=== PATIENT | female | born 1950 | race Caucasian/White ===

== ENCOUNTER → 2018-08-23 13:06 | Outpatient (CLI) | payer SELFPAY ==
--- NOTE | 2018-08-23 13:20 | XR_ITS ---
XR knee RT 4V HISTORY: ITS.REASON: right knee pain ORDERING PHYSICIAN: Pepper Lombardo MD PATIENT AGE: 68 years COMPARISON: None FINDINGS: There is moderate to severe osteoarthritic changes medial compartment and patellofemoral joint. No fracture or dislocation. There is mild varus angulation of the distal tibia with mild lateral tibial subluxation. Prominent bony spurs are present at the intercondylar region of the distal femur, proximal tibia, and patellofemoral joint. IMPRESSION: Moderate to severe osteoarthritis of the right knee
--- NOTE | 2018-08-23 13:20 | XR_ITS ---
XR knee LT 4V HISTORY: ITS.REASON: left knee pain ORDERING PHYSICIAN: Pepper Lombardo MD PATIENT AGE: 68 years COMPARISON: None FINDINGS: Moderate to severe osteoarthritic changes are present involving the medial compartment and patellofemoral joint. Mild osteoarthritis involves the lateral compartment. There is mild lateral subluxation of the tibia x 5 mm. IMPRESSION: Moderate to severe osteoarthritis
== END ==
PROVIDERS: Visit Provider Orthopaedic Surgery
DX: M25.562 Pain in left knee (principal); M25.561 Pain in right knee
CPT/HCPCS: 73564